=== PATIENT | female | born 1985 | race Caucasian/White ===

== ENCOUNTER 2018-07-21 19:30 | Emergency (ER) | payer BC, OTHER ==
[2018-07-21] MEDS ORDERED: methylPREDNISolone Sod Succ/PF 125 MG/2 ML VIAL ONE (20:06)
[2018-07-21] MEDS ORDERED: diphenhydrAMINE 50 MG/ML VIAL ONE (20:06)
[2018-07-21] MEDS ORDERED: Metoclopramide HCl 10 MG/2 ML VIAL ONE (20:06)
[2018-07-21 20:10] LABS: #Basophils 0.1 thou/uL (0.0-0.2); #Eosinphils 0.3 thou/uL (0.0-0.7); #Monocytes 0.9 thou/uL (0.11-0.59); #Neutrophils 10.6 thou/uL (1.40-6.50); %Basophils 0.6 % (0.0-1.0); %Eosinophils 2.2 % (0.0-10.0); %Lymphocytes 20.2 % (21.0-51.0); %Monocytes 6.1 % (0.0-10.0); %Neutrophils 70.8 % (42.0-75.0); Hemoglobin 13.9 g/dL (12.0-16.0); Mean Corpuscular HGB CONC 33.4 g/dL (32.0-36.0); Mean Corpuscular Hemoglobin 27.6 pg (27.0-31.0); Mean Corpuscular Volume 82.7 fL (78.0-98.0); Mean Platelet Volume 8.2 fL (7.4-10.4); Platelet Count 287 thou/uL (130-400); Red Blood Cell (RBC) Count 5.04 mill/uL (4.20-5.40)
[2018-07-21 20:27] LABS: ALT (SGPT) 23 U/L (8-55); AST (SGOT) 16 U/L (5-34); Albumin 3.9 g/dL (3.5-5.0); Alkaline Phosphatase 135 U/L (40-150); Anion Gap 13 mmol/L (10-20); BUN (Urea Nitrogen) 20 mg/dL (7.0-18.7); Bilirubin, Total 0.3 mg/dL (0.2-1.2); CK (CPK) 52 U/L (29-168); Calc. Creatinine Clearance 0 mL/min (70-130); Calcium 9.5 mg/dL (7.8-10.44); Carbon Dioxide 28 mmol/L (22-29); Chloride 102 mmol/L (98-107); Estimated GFR-MDRD 57; Globulin 3.5 g/dL (2.4-3.5); Glucose 128 mg/dL (70-105); Potassium 4.3 mmol/L (3.5-5.1); Protein, Total 7.4 g/dL (6.0-8.3); Sodium 139 mmol/L (136-145)
[2018-07-21 20:28] LABS: CKMB 0.6 ng/mL (0-6.6); Troponin I Less than 0.010 ng/mL (< 0.028)
--- NOTE | 2018-07-21 22:18 | CT ---
CT BRAIN NONCONTRAST: 07/21/18 HISTORY: 33-year-old female with acute onset of left headache, left sided blurred vision, dysarthria, and left sided paresthesia. FINDINGS: There is no midline shift or any other mass effect. There is no evidence of acute intracranial hemor rhage, large cortical infarct, obstructive hydrocephalus, or extraaxial fluid collection. The calvar ium is intact. There is moderate to severe polypoid mucosal thickening throughout the bilateral maxil hakeem sinuses. There is severe partial opacification of bilateral anterior ethmoid air cells encroachi ng upon the bilateral frontal recesses. The bilateral tympanomastoid cavities and the right sphenoid air cell, are clear. There is polypoid mucosal thickening at the inferior aspect of the left sphenoid air cell. IMPRESSION: 1. No acute intracranial findings. 2. Mucosal disease of paranasal sinuses. amairani jha POS: NONI
--- NOTE | 2018-07-21 22:31 | CT ---
CT CERVICAL SPINE NONCONTRAST: 07/21/18 at 10:11 p.m. HISTORY: 33-year-old female with left upper extremity paresthesia and cervicalgia. FINDINGS: Alignment is normal. The vertebral body heights are maintained. Disc spaces are maintained. There is no evidence of acute fracture. There is no evidence of high grade central spinal canal stenosis or hi gh grade neuroforaminal stenosis. There are no high grade degenerative facet changes. There is no p revertebral soft tissue swelling. There is reversal of curvature of the cervical spine. The left and right lobes of the thyroid gland are enlarged, with heterogeneous attenuation. There may be bilateral thyroid nodules. There are minimal interstitial densities partially visualized at the apex of the left lung, incompletely imaged. IMPRESSION: 1. Reversal of cervical curvature. 2. No other abnormality of the cervical spine identified. 3. Thyromegaly. amairani[] POS: NONI
== END 2018-07-22 00:11 | disposition home or self-care (01) ==
LOC: SCSER 19:30 → ERS 21:09
DX: S09.90XA Unspecified injury of head, initial encounter (principal); R20.2 Paresthesia of skin; K21.9 Gastro-esophageal reflux disease without esophagitis; I10 Essential (primary) hypertension; F17.210 Nicotine dependence, cigarettes, uncomplicated; F41.9 Anxiety disorder, unspecified; X58.XXXA Exposure to other specified factors, initial encounter
CPT/HCPCS: 70450; 72125; 80053; 82550; 82553; 83605; 84484; 85025; 93005; J1200; J2765; J2930

== ENCOUNTER 2018-08-14 21:34 | Observation (INO) | payer BC ==
[2018-08-14] MEDS ORDERED: Ondansetron PF 4 MG/2 ML Vial ONE (21:50)
--- NOTE | 2018-08-14 22:23 | CT ---
CT OF THE BRAIN WITHOUT CONTRAST: 08/14/18 INDICATION: History of dizziness and syncope. COMPARISON: Prior exam dated 07/21/18. FINDINGS: No definite acute infarct, hemorrhage or hydrocephalus is present. The septum pellucidum and third ve ntricle are midline. The skull and extracranial soft tissues are unremarkable. IMPRESSION: No acute intracranial abnormality. POS: TISHA
--- NOTE | 2018-08-14 22:31 | RAD ---
CHEST ONE VIEW: 08/14/18 INDICATION: Dizziness. COMPARISON: Prior chest radiograph dated 06/04/17. FINDINGS: Lungs are clear. Cardiomediastinal silhouette is within normal limits. No acute osseous abnormalities evident. IMPRESSION: No acute cardiopulmonary abnormality. POS: H
--- NOTE | 2018-08-14 22:33 | RAD ---
THREE VIEWS RIGHT SHOULDER: 08/14/18 INDICATION: Right shoulder pain. FINDINGS: No comparisons are available. No acute fracture or subluxation is evident. The visualized right lung is clear. IMPRESSION: No acute osseous abnormality. POS: TISHA
[2018-08-14 22:55] LABS: Hemoglobin 14.4 g/dL (12.0-16.0); Mean Corpuscular HGB CONC 32.3 g/dL (32.0-36.0); Mean Corpuscular Hemoglobin 26.9 pg (27.0-31.0); Mean Corpuscular Volume 83.4 fL (78.0-98.0); Mean Platelet Volume 9.4 fL (7.4-10.4); Platelet Count 294 thou/uL (130-400); RBC Distribution Width 13.3 % (11.5-14.5); Red Blood Cell (RBC) Count 5.33 mill/uL (4.20-5.40); White Blood Cell (WBC) Count 12.2 thou/uL (4.8-10.8)
[2018-08-14 23:02] LABS: ALT (SGPT) 34 U/L (8-55); AST (SGOT) 19 U/L (5-34); Albumin 4.1 g/dL (3.5-5.0); Alkaline Phosphatase 95 U/L (40-150); Anion Gap 15 mmol/L (10-20); BUN (Urea Nitrogen) 23 mg/dL (7.0-18.7); Bilirubin, Total 0.4 mg/dL (0.2-1.2); CK (CPK) 54 U/L (29-168); Calc. Creatinine Clearance 0 mL/min (70-130); Calcium 8.9 mg/dL (7.8-10.44); Carbon Dioxide 23 mmol/L (22-29); Chloride 108 mmol/L (98-107); Estimated GFR-MDRD 52; Globulin 3.1 g/dL (2.4-3.5); Glucose 102 mg/dL (70-105); Lipase 28 U/L (8-78); Potassium 3.7 mmol/L (3.5-5.1); Protein, Total 7.2 g/dL (6.0-8.3); Sodium 142 mmol/L (136-145)
[2018-08-14 23:03] LABS: Acetaminophen Less than 6.0 mcg/mL (10.0-30.0); Alcohol Less than 10 mg/dL (Less than 10); CKMB 0.7 ng/mL (0-6.6); Salicylate Less than 8.0 mg/dL (15.0-30.0); Troponin I Less than 0.010 ng/mL (< 0.028)
[2018-08-14 23:17] LABS: Band 1 % (5-11); Eosinophils 1 % (0-10); Lymphocytes 11 % (21-51); MDiff Complete? YES; Monocytes 9 % (0-10); Neutrophil 77 % (42-75)
[2018-08-14] MEDS ORDERED: HYDROcodone/Acetaminophen 5/325 mg Tablet ONE (23:24)
[2018-08-14 23:37] LABS: Bilirubin Small (Negative); Blood, Urine Trace (Negative); Clarity Clear (Clear); Glucose, Urine (Dipstick) Negative (Negative); Leukocyte Negative (Negative); Nitrite Negative (Negative); Protein, Urine (Dipstick) > or equal to 300 mg/dL (Neg-Trace); Urobilinogen 0.2 mg/dL (0.2-1.0); pH, Urine 5.5 (5.0-9.0)
[2018-08-14 23:44] LABS: Specific Gravity, Urine 1.034 (1.002-1.036)
[2018-08-14 23:45] LABS: RBC/HPF 0-3 HPF (0-3); Squamous Epithelial 0-3 HPF (0-3); WBC/HPF 0-3 HPF (0-3)
[2018-08-14 23:46] LABS: Bacteria/HPF 1+ HPF (None Seen); Hyaline Casts/LPF 0-3 HYALINE CAST LPF (0-3 Hyaline)
[2018-08-14 23:48] LABS: Cocaine Metabolite Screen Not Detected (NotDetected); Phencyclidine (PCP) Not Detected (NotDetected); THC/Cannabinoid Screen Not Detected (NotDetected)
[2018-08-14 23:49] LABS: Amphetamine Not Detected (NotDetected); Barbiturates Screen Not Detected (NotDetected); Benzodiazepine Screen Not Detected (NotDetected); Medtox Control Line Valid? VALID (VALID); Methadone Not Detected (NotDetected); Methamphetamine Detected (NotDetected); Opiate Screen Not Detected (NotDetected); Oxycodone Screen Not Detected (NotDetected); Tricyclic Screen Detected (NotDetected)
[2018-08-15] MEDS ORDERED: Ondansetron PF 4 MG/2 ML Vial IVP PRN (01:11)
[2018-08-15] MEDS ORDERED: Ondansetron ODT 4 MG TAB SL PRN (01:11)
[2018-08-15 01:25] VITALS: BMI 35.6
[2018-08-15] MEDS: Sodium Chloride 0.9% 1,000 ML IV SCH ×2 (02:35→09:48)
[2018-08-15 02:43] LABS: Troponin I Less than 0.010 ng/mL (< 0.028)
[2018-08-15 05:13] LABS: Troponin I Less than 0.010 ng/mL (< 0.028)
[2018-08-15] MEDS: Acetaminophen 325 MG TAB PO PRN ×3 (05:32→20:52)
[2018-08-15] MEDS ORDERED: Lisinopril 10 MG TAB PO SCH (09:00)
--- NOTE | 2018-08-15 09:23 | HP ---
CHIEF COMPLAINT: "I think I syncopized." HISTORY OF PRESENT ILLNESS: This is a 33-year-old female with past medical history of chronic back pain, osteoarthritis, kidney stones, hypertension, GERD , and asthma presenting with syncope. Per patient, she has been vomiting, having nausea and diarrhea for 3-4 days and on the day of admission when the patient got out of the bathtub, patient states that she experienced syncope. Other than that, patient states that she does not have any fever, chills, chest pain, palpitations, abdominal pain, dysuria, but admits to diarrhea, right shoulder pain after the fall. REVIEW OF SYSTEMS: Positive for syncope, diarrhea, nausea, vomiting, right shoulder pain, otherwise as documented in the HPI. All other systems were reviewed and are negative. PAST MEDICAL HISTORY: Reactive airway disease, GERD, osteoarthritis, hypertension, chronic back pain, history of kidney stones. FAMILY HISTORY: Reviewed and noncontributory to this visit. PAST SURGICAL HISTORY: Hysterectomy, lithotripsy in the past, appendectomy, cholecystectomy and . PSYCHIATRIC HISTORY: Patient has a history of anxiety. SOCIAL HISTORY: Patient drinks socially. Patient denies any drug use, even though patient has positive meth in her blood. The patient states that in the past, there was a positive methamphetamine in her urine, but she has never done drugs. She does not do drugs and she swears by. Smoking history, patient uses tobacco, smokes half a pack per day. ALLERGIES: ASPIRIN, IODINE, MORPHINE and TORADOL. CURRENT MEDICATIONS: Patient is on gabapentin 800, trazodone 300 mg, furosemide 20 mg, cyclobenzaprine 10 mg, Benadryl 25 mg, lisinopril 10 mg, Prozac 40 mg, Prilosec 10 mg, simvastatin 20 mg and Benadryl 50 mg. PHYSICAL EXAMINATION: VITAL SIGNS: Blood pressure 125/94, pulse of 150, respiratory rate of 16, temperature of 97.6, O2 saturation of 97%. GENERAL: The patient is lying in bed, does not appear to be in any acute distress. The patient is speaking in full sentences. HEENT: Normocephalic, atraumatic. Pupils are equally round and reactive light. Extraocular movements are intact. No scleral icterus. Mucous membranes are moist. NECK: Supple. Trachea is midline. No JVD. Full range of motion. LUNGS: Clear to auscultation bilaterally. No wheezing, no rales, no rhonchi is appreciated. CARDIAC: Positive S1, S2, regular rate and rhythm. ABDOMEN: Soft, nontender, nondistended, positive bowel sounds in all quadrants. EXTREMITIES: Upper extremity, patient has good range of motion. The patient is having some tenderness at the right shoulder with range of motion. No deformities, no defects noted. Good pulses bilaterally at the radial pulses. Lower extremity, 5/5 lower extremity strength. Good pulses at dorsalis pedis. NEUROLOGIC: Cranial nerves II-XII grossly intact. Neurologic deficit noted. SKIN: Warm, dry, and intact. IMAGING DATA: 1. EKG shows normal sinus rhythm. 2. CT of the head is negative. 3. CT of the chest is also negative. In the ED, patient was given [place], normal saline and Zofran. LABORATORY DATA: WBC is 12.2, hemoglobin 14.4, hematocrit 24.5, RDW 13.3, platelet count is 294. Sodium is 142, potassium 3.7, chloride 108, carbon dioxide 23, BUN is 23, creatinine is 1.19. Urinalysis negative for nitrate, negative for leukoesterase. Urine toxicity, patient has positive methamphetamine and tricyclics. ASSESSMENT AND PLAN: 1. This is a 33-year-old female being admitted for nausea, vomiting, and diarrhea, likely due to drug withdrawal; however, the patient can also be having some gastroenteritis. At this point, we are going to treat the patient supportively and we will monitor the patient's labs in the morning and will fluid hydrate the patient and we will follow up on a BUN and creatinine. 2. Positive urine toxicology. Patient has methamphetamines in the urine. We will treat the patient supportively. 3. History of anxiety, currently stable. We will continue to treat the patient with her current medications. 4. Chronic back pain. We will continue patient on her home medication. 5. History of gastroesophageal reflux disease. We will continue patient on her home medication. 6. History of osteoarthritis. We will continue patient on home medications. 7. History of hypertension. The patient's blood pressure is currently controlled. We will continue to monitor the patient's blood pressure closely. 8. Deep venous thrombosis and gastrointestinal prophylaxis. MTDD
[2018-08-15] MEDS: Cyclobenzaprine 10 MG TAB PO SCH ×2 (09:50→20:52)
[2018-08-15] MEDS: Furosemide 20 MG TAB PO SCH (09:50)
--- NOTE | 2018-08-15 13:35 | PDOC.PN ---
- Subjective Encounter Start Date: 08/15/18 Encounter Start Time: 09:00 Patient sitting up in bed, she is admitted under observation for nausea, vomiting, and diarrhea and syncope. Syncope likely related to dehydration due to frequent loose stools. She reports symptoms have been ongoing for 1-2 weeks. Urine drug screen positive for methamphetamines which may likely be the cause of her symptoms as she may be withdrawing. She denies chest pain or shortness of breath. She tolerated breakfast without complaints. Stool collected to rule out c diff. - Objective Resuscitation Status: Resuscitation Status FULL:Full Resuscitation MAR Reviewed: Yes Vital Signs & Weight: Vital Signs (12 hours) Temp Pulse Resp BP Pulse Ox 08/15/18 11:13 98.4 F 97 20 123/78 95 08/15/18 07:49 97.9 F 94 18 132/73 97 08/15/18 04:06 97.8 F 91 16 123/56 L 93 L Weight Weight 208 lb I&O: 08/14/18 08/15/18 08/16/18 06:59 06:59 06:59 Intake Total 1825 Balance 1825 Result Diagrams: 08/14/18 22:40 08/14/18 22:40 Radiology Reviewed by me: Yes EKG Reviewed by me: Yes Phys Exam - Physical Examination Constitutional: NAD HEENT: PERRLA, moist MMs, sclera anicteric, oral pharynx no lesions Edentulous noted Neck: no nodes, no JVD, supple Respiratory: no wheezing, no rales, no rhonchi, clear to auscultation bilateral Cardiovascular: RRR, no significant murmur, no rub Gastrointestinal: soft, non-tender, no distention, positive bowel sounds Musculoskeletal: no edema, pulses present Neurological: non-focal, normal sensation, moves all 4 limbs Lymphatic: no nodes Psychiatric: normal affect, A&O x 3 Skin: no rash, normal turgor, cap refill <2 seconds Dx/Plan (1) Diarrhea Code(s): R19.7 - DIARRHEA, UNSPECIFIED Status: Acute (2) Nausea & vomiting Code(s): R11.2 - NAUSEA WITH VOMITING, UNSPECIFIED Status: Acute (3) Syncope Code(s): R55 - SYNCOPE AND COLLAPSE Status: Acute (4) Methamphetamine use Code(s): F15.10 - OTHER STIMULANT ABUSE, UNCOMPLICATED Status: Acute - Plan cont current plan of care, DVT proph w/SCDs * Continue with intravenous normal saline for hydration * Symptomatic treatment with zofran for nausea * Await stool culture to rule out cdiff * Symptoms likely related to amphetamine use as this may be withdrawal. * Check urine culture as UA showing 1+ bacteria but may be contaminate as patient denying urinary symptoms at this time * Will likely be discharged in the next 24 hours if symptoms continue to improve
--- NOTE | 2018-08-15 14:56 | PDOC.EVN ---
Event Note - Event Note Event Note: C diff returned negative, will continue to manage patient symptoms and likely discharge in the am if stable.
[2018-08-15] MEDS ORDERED: Ondansetron ODT 8 MG TAB SL PRN (17:07)
[2018-08-15] MEDS ORDERED: Famotidine 20 MG TAB PO SCH (18:00)
[2018-08-15] MEDS ORDERED: PROVENTIL INHALER 6.7 G (200 INHALATIONS) INH PRN (20:57)
[2018-08-15] MEDS ORDERED: traZODone HCl 150 MG TAB PO SCH (21:00)
[2018-08-15] MEDS ORDERED: FLUoxetine HCl 20 MG CAP PO SCH (21:00)
[2018-08-15] MEDS: Gabapentin 400 MG CAP PO SCH (21:12)
[2018-08-16 04:55] LABS: #Basophils 0.1 thou/uL (0.0-0.2); #Eosinphils 0.3 thou/uL (0.0-0.7); #Lymphocytes 2.4 thou/uL (1.20-3.40); #Monocytes 0.9 thou/uL (0.11-0.59); #Neutrophils 5.1 thou/uL (1.40-6.50); %Basophils 0.8 % (0.0-1.0); %Eosinophils 3.3 % (0.0-10.0); %Lymphocytes 27.4 % (21.0-51.0); %Monocytes 9.9 % (0.0-10.0); %Neutrophils 58.6 % (42.0-75.0); Hemoglobin 13.3 g/dL (12.0-16.0); Mean Corpuscular HGB CONC 33.8 g/dL (32.0-36.0); Mean Corpuscular Hemoglobin 28.6 pg (27.0-31.0); Mean Corpuscular Volume 84.7 fL (78.0-98.0); Mean Platelet Volume 8.2 fL (7.4-10.4); Platelet Count 265 thou/uL (130-400); RBC Distribution Width 13.4 % (11.5-14.5); Red Blood Cell (RBC) Count 4.67 mill/uL (4.20-5.40); White Blood Cell (WBC) Count 8.8 thou/uL (4.8-10.8)
[2018-08-16 05:10] LABS: Anion Gap 11 mmol/L (10-20); BUN (Urea Nitrogen) 20 mg/dL (7.0-18.7); Calc. Creatinine Clearance 149 mL/min (70-130); Calcium 8.5 mg/dL (7.8-10.44); Carbon Dioxide 23 mmol/L (22-29); Chloride 112 mmol/L (98-107); Estimated GFR-MDRD 83; Glucose 104 mg/dL (70-105); Potassium 3.9 mmol/L (3.5-5.1); Sodium 142 mmol/L (136-145)
[2018-08-16 08:26] VITALS: BP 136/77; TEMP 98.3
[2018-08-16] MEDS ORDERED: Famotidine 20 MG TAB PO SCH (09:00)
--- NOTE | 2018-08-16 09:55 | PDOC.EVN ---
Event Note - Event Note Event Note: I have interviewed,examined, reviewed and discussed patient with Tierra KIM. All pertinent hx, labs, radiographs reviewed. Likely dehydration and use of Methamphetamines contributed to current situation. Plan for d/c home today. Pt verbalized understanding and agreement. Please see dictated d/c summary for full details.
[2018-08-16] MEDS: Gabapentin 400 MG CAP PO SCH (10:00)
[2018-08-16] MEDS: Cyclobenzaprine 10 MG TAB PO SCH (10:00)
[2018-08-16] MEDS: Furosemide 20 MG TAB PO SCH (10:01)
--- NOTE | 2018-08-16 13:49 | DIS ---
DATE OF ADMISSION: 08/15/2018 DATE OF DISCHARGE: 08/16/2018 PRIMARY CARE PHYSICIAN: Dr. Malone DISCHARGE DIAGNOSES: 1. Nausea, vomiting, which is resolved. 2. Diarrhea, which has improved. 3. Dehydration, which has improved. 4. Methamphetamine abuse. CONSULTATIONS: None. PROCEDURES: The patient had a brain CT, which was negative for acute findings. Right shoulder x-ray which is also negative for acute findings. Chest x-ray, which is negative for acute findings and an EKG which showed a normal sinus rhythm with no ST elevations. VITAL SIGNS ON DISCHARGE: Temperature 98.3, pulse 95, respirations 18, pulse ox 94% on room air, blood pressure 136/77. REVIEW OF SYSTEMS: She denies any syncope, diarrhea, nausea, vomiting. Reports mild shoulder pain after the syncopal episode which brought her into the hospital. PAST MEDICAL HISTORY: Reactive airway disease, GERD, osteoarthritis, hypertension, chronic back pain and history of kidney stones. PHYSICAL EXAMINATION: GENERAL: She was lying in bed in no acute distress. The patient is speaking in full sentences. HEENT: Normocephalic, atraumatic. Pupils are equally round and reactive to light. Extraocular movements are intact. Mucous membranes are moist. NECK: Neck supple. Trachea is midline. No JVD. Full range of motion. LUNGS: Clear to auscultation bilaterally. No wheezes, no rales, no rhonchi. CARDIAC: Positive S1, S2 regular rhythm and rate. ABDOMEN: Soft, nontender, nondistended, positive bowel sounds in all quadrants. EXTREMITIES: Strength, sensation; pulses are equal in upper and lower extremities. Patient has some tenderness to the right shoulder with range of motion. NEUROLOGIC: Cranial nerves II-XII are grossly intact. No neurological deficit is noted. SKIN: Warm, dry and intact. HISTORY OF PRESENT ILLNESS AND HOSPITAL COURSE: A 33-year-old female who reports having some nausea, vomiting, diarrhea for 3-4 days prior to admission. She reports she had a syncopal episode when she got out of the tub on the day of admission, reports her family found her slumped against the wall. Reports she injured her right shoulder at that time. X-ray in the ED was negative for acute findings. UA was positive for methamphetamines and TCAs. While she has been here, she has been ambulating without assistance. Denies any current dizziness. Denies any recurrent syncopal episodes. Reports generally she feels better. No nausea, vomiting, one episode of diarrhea yesterday. She was feeling better today and is requesting to go home. ALLERGIES: Include ASPIRIN, IODINE, MORPHINE and TORADOL. CURRENT MEDICATIONS: Albuterol inhaler 2 puffs as needed q.4 hours, Flexeril 5 mg tablet 10 mg p.o. b.i.d., Benadryl 25 mg as needed, fluoxetine 40 mg p.o. at bedtime, furosemide 20 mg p.o. daily, gabapentin 800 mg p.o. t.i.d., lisinopril 10 mg p.o. daily, metformin 500 mg p.o. b.i.d., Nexium 40 mg p.o. daily, simvastatin 20 mg p.o. at bedtime, trazodone 300 mg p.o. at bedtime, Pepcid 20 mg p.o. b.i.d., hydrocodone 5/325 two tablets q.4. p.r.n., albuterol with ipratropium 120 1 puff q.6 hours as needed. DISCHARGE CONDITION: Stable. DISPOSITION: To home. FOLLOWUP: She is to follow up with Dr. Malone in 1 week. [facility]ITAL[facility]
== END 2018-08-16 11:05 | disposition home or self-care (01) ==
LOC: SCSER 21:34 → 2SW 08-15 00:07
PROVIDERS: ADMIT Internal Medicine; ATTEND Internal Medicine
DX: R55 Syncope and collapse (principal); M25.511 Pain in right shoulder; K21.9 Gastro-esophageal reflux disease without esophagitis; I10 Essential (primary) hypertension; F41.9 Anxiety disorder, unspecified; F17.210 Nicotine dependence, cigarettes, uncomplicated; Z79.899 Other long term (current) drug therapy; W19.XXXA Unspecified fall, initial encounter
CPT/HCPCS: 36415; 70450; 71045; 80048; 80053; 80306; 80307; 81003; 81015; 82553; 83690; 84484; 85025; 87086; 87324; 87449; 90471; 90686; 90732; 93005; 96361; 96374; G0008; G0009; G0378; J2405; Q0162

== ENCOUNTER 2019-01-14 11:03 | Emergency (ER) | payer BC, SELFPAY ==
[2019-01-14 13:15] LABS: Bilirubin Negative (Negative); Blood, Urine Negative (Negative); Clarity CLEAR (Clear); Glucose, Urine (Dipstick) Negative (Negative); Leukocyte Negative (Negative); Nitrite Negative (Negative); Protein, Urine (Dipstick) 100 mg/dL (Neg-Trace); Specific Gravity, Urine 1.016 (1.002-1.036); Urobilinogen 0.2 mg/dL (0.2-1.0); pH, Urine 5.5 (5.0-9.0)
[2019-01-14] MEDS ORDERED: Fentanyl 100 MCG/2 ML VIAL ONE (13:18)
[2019-01-14 13:19] LABS: Bacteria/HPF Rare-Few HPF (None Seen); Pathc Cast-AUWi Flag 2.17 (0-2.49)
[2019-01-14 13:30] LABS: RBC/HPF 0-3 HPF (0-3)
[2019-01-14 13:31] LABS: Hyaline Casts/LPF 0-3 HYALINE CAST LPF (0-3 Hyaline)
--- NOTE | 2019-01-14 14:54 | HP ---
The patient is seen in the ER on 01/14/2019 at [facility]. CHIEF COMPLAINT: Abdominal pain. HISTORY OF PRESENT ILLNESS: This is a 33-year-old female with a known incisional hernia, presented to [facility] a few days ago with pain above her umbilicus associated with a mass. The hernia was able to be reduced. She had a CT scan showing no evidence of strangulation. She now presents to [facility] with recurrent pain. She has required quite a lot of narcotic in the emergency room because she is complaining of pain nonstop. I was able to reduce the hernia again at the bedside without difficulty. PAST MEDICAL HISTORY: GERD, osteoarthritis, hypertension, chronic back pain, and kidney stones. PAST SURGICAL HISTORY: Hysterectomy, lithotripsy, appendectomy, cholecystectomy, and . MEDICATIONS: Taking daily. SOCIAL HISTORY: No smoking, alcohol, or other drugs currently. REVIEW OF SYSTEMS: Ten-system review of systems is otherwise negative, unless described above. PHYSICAL EXAMINATION: HEENT: Sclerae anicteric. Oropharynx clear. NECK: No lymphadenopathy. CHEST: Clear. HEART: Regular rate and rhythm. ABDOMEN: Soft, nontender. Now that her hernia is reduced. She has a 3-cm defect just above her umbilicus. Well-healed incisions. EXTREMITIES: No ischemia or edema to extremities. LABORATORY DATA: Urine is clear today. No other labs. ASSESSMENT: Intermittently incarcerated omental fat and an incisional hernia. PLAN: Elective repair next week. I will arrange for that. Risks, benefits, and alternatives were discussed and she gives consent. Job ID: [id number]
== END 2019-01-14 14:52 | disposition home or self-care (01) ==
LOC: ERS 11:03
DX: K42.9 Umbilical hernia without obstruction or gangrene (principal); K21.9 Gastro-esophageal reflux disease without esophagitis; I10 Essential (primary) hypertension; F41.9 Anxiety disorder, unspecified; F17.210 Nicotine dependence, cigarettes, uncomplicated
CPT/HCPCS: 81003; 81015; 96374; J3010

== ENCOUNTER 2019-01-20 06:36 | Day surgery (SDC) | payer OTHER ==
[2019-01-19 12:41] VITALS: BMI 29.2
[2019-01-20 08:24] LABS: Anion Gap 13 mmol/L (10-20); BUN (Urea Nitrogen) 13 mg/dL (7.0-18.7); Calc. Creatinine Clearance 121 mL/min (70-130); Calcium 8.9 mg/dL (7.8-10.44); Carbon Dioxide 24 mmol/L (22-29); Chloride 108 mmol/L (98-107); Estimated GFR-MDRD 81; Glucose 105 mg/dL (70-105); Potassium 3.8 mmol/L (3.5-5.1); Sodium 141 mmol/L (136-145)
[2019-01-20] MEDS ORDERED: Midazolam HCl 2 mg/2 ml Vial ONE (08:39)
[2019-01-20] MEDS ORDERED: Bupivacaine/Epinephrine 0.25% 30 ML VIAL ONE (08:47)
[2019-01-20] MEDS ORDERED: Fentanyl 250 MCG/5 ML VIAL ONE (08:51)
--- NOTE | 2019-01-20 10:30 | OP ---
DATE OF PROCEDURE: 01/20/2019 PREOPERATIVE DIAGNOSIS: Incisional hernia. POSTOPERATIVE DIAGNOSIS: Incisional hernia. PROCEDURE PERFORMED: Laparoscopic robotic incisional hernia repair with mesh, [address] ANESTHESIA: General. ESTIMATED BLOOD LOSS: Minimal. COMPLICATIONS: None. SPECIMEN: None. FINDINGS: Incisional hernia. DESCRIPTION OF PROCEDURE: The patient was taken to the operating room and laid supine on the operating room table after general anesthetic was obtained. Morales catheter was placed. The abdomen was prepped and draped in a sterile fashion. Left subcostal 5 mm Optiview trocar was placed in the usual fashion and high-flow pneumoperitoneum was obtained. Left and right subcostal 8 mm robot trocars were placed under direct visualization without injury. The 5 mm subcostal port switched out to 11 mm port. All ports were docked to the robot. Surgeon goes to the console. The large amount of omentum in the incisional hernia was reduced back down into the abdominal cavity. There was no intestine. No injury to any intraabdominal structures. The defect was closed using running 0 V-Loc suture. An 8 cm [place] Ventralex ST mesh was brought into the sterile field. The exposed mesh was placed up against the posterior fascia. It was held in place using the 0 V-Loc needle. 2-0 V-Loc was used to suture the mesh to the posterior fascia circumferentially along the edge. All needles were removed from the abdomen and accounted for. No injury to any intraabdominal structures. No bleeding. All port sites were infiltrated using local anesthetic. All ports were removed under camera visualization and pneumoperitoneum was let down. 4-0 Monocryl and Dermabond used to close all skin incisions. The patient was sent to Recovery in stable condition. All sponge counts, needle counts, and lap counts were correct. Job ID: [id number]
[2019-01-20] MEDS ORDERED: Fentanyl 100 MCG/2 ML VIAL ONE ×3 (10:36→11:59)
[2019-01-20] MEDS ORDERED: HYDROcodone/Acetaminophen 5/325 mg Tablet ONE (12:36)
== END 2019-01-20 13:55 | disposition home or self-care (01) ==
LOC: SDC 06:36
PROVIDERS: ATTEND Surgery
PROC: 0WUF4JZ Supplement Abdominal Wall with Synthetic Substitute, Percutaneous Endoscopic Approach (ICD-10-PCS; principal; 2019-01-20)
DX: K43.2 Incisional hernia without obstruction or gangrene (principal); K21.9 Gastro-esophageal reflux disease without esophagitis; G47.00 Insomnia, unspecified; M79.7 Fibromyalgia; G43.909 Migraine, unspecified, not intractable, without status migrainosus; F17.210 Nicotine dependence, cigarettes, uncomplicated; F31.9 Bipolar disorder, unspecified; F41.9 Anxiety disorder, unspecified; Z79.84 Long term (current) use of oral hypoglycemic drugs; Z79.899 Other long term (current) drug therapy; Z88.5 Allergy status to narcotic agent; Z88.8 Allergy status to other drugs, medicaments and biological substances; Z91.013 Allergy to seafood; Z91.041 Radiographic dye allergy status
CPT/HCPCS: 36415; 80048; 93005; 93010; C1781; J2250; J3010

== ENCOUNTER 2019-02-22 18:59 | Emergency (ER) | payer SELFPAY ==
[2019-02-22 20:56] LABS: #Basophils 0.1 thou/uL (0.0-0.2); #Eosinphils 0.3 thou/uL (0.0-0.7); #Neutrophils 10.2 thou/uL (1.40-6.50); %Basophils 0.6 % (0.0-1.0); %Eosinophils 2.4 % (0.0-10.0); %Lymphocytes 20.5 % (21.0-51.0); %Monocytes 7.1 % (0.0-10.0); %Neutrophils 69.5 % (42.0-75.0); Hemoglobin 14.2 g/dL (12.0-16.0); Mean Corpuscular HGB CONC 33.8 g/dL (32.0-36.0); Mean Corpuscular Hemoglobin 28.4 pg (27.0-31.0); Mean Corpuscular Volume 83.9 fL (78.0-98.0); Mean Platelet Volume 8.5 fL (7.4-10.4); Platelet Count 316 thou/uL (130-400); RBC Distribution Width 13.2 % (11.5-14.5); White Blood Cell (WBC) Count 14.7 thou/uL (4.8-10.8)
[2019-02-22 21:17] LABS: ALT (SGPT) 29 U/L (8-55); AST (SGOT) 15 U/L (5-34); Albumin 3.8 g/dL (3.5-5.0); Alkaline Phosphatase 112 U/L (40-150); Anion Gap 13 mmol/L (10-20); BUN (Urea Nitrogen) 19 mg/dL (7.0-18.7); Bilirubin, Total 0.2 mg/dL (0.2-1.2); Calc. Creatinine Clearance 0 mL/min (70-130); Calcium 8.9 mg/dL (7.8-10.44); Carbon Dioxide 23 mmol/L (22-29); Chloride 106 mmol/L (98-107); Estimated GFR-MDRD 49; Glucose 125 mg/dL (70-105); Lipase 26 U/L (8-78); Protein, Total 6.8 g/dL (6.0-8.3); Sodium 138 mmol/L (136-145)
[2019-02-22 21:27] LABS: Bilirubin Small (Negative); Blood, Urine Negative (Negative); Clarity CLEAR (Clear); Glucose, Urine (Dipstick) Negative (Negative); Leukocyte Negative (Negative); Nitrite Negative (Negative); Protein, Urine (Dipstick) > or equal to 300 mg/dL (Neg-Trace); Specific Gravity, Urine 1.026 (1.002-1.036); Urobilinogen 0.2 mg/dL (0.2-1.0); pH, Urine 5.5 (5.0-9.0)
[2019-02-22 21:29] LABS: Bacteria/HPF 1+ HPF (None Seen); Hyaline Casts/LPF 7-10 HYALINE CAST LPF (0-3 Hyaline); Pathc Cast-AUWi Flag 0.95 (0-2.49); RBC/HPF 0-3 HPF (0-3)
[2019-02-22 21:31] LABS: Pregnancy Test - Urine (BHCG) Negative (Negative); Pregu Control Background? CLEAR/WHITE (CLR/WHITE); Pregu Control Bar Appear? YES (CONTROL BAR); Specific Gravity 1.026 (1.002-1.036)
[2019-02-23] MEDS ORDERED: HYDROcodone/Acetaminophen 5/325 mg Tablet ONE (00:13)
--- NOTE | 2019-02-23 00:54 | CT ---
CT abdomen noncontrast CT pelvis noncontrast: (Urolithiasis protocol) DATE: 02/23/2019 at 11:58 pm HISTORY: 33-year-old female with nausea, vomiting, fever, and generalized abdominal pain. COMPARISON: None available TECHNIQUE: IV injection of iodinated contrast media: None Oral contrast media: None FINDINGS: Other than for urolithiasis, the lack of IV and oral contrast limits the evaluation. There are 2 tiny calculi adjacent to each other, approximately 2 mm in size each, at a right renal lo wer pole calyx. No hydronephrosis. No calculus in the ureters or urinary bladder. No colonic diverticulitis. No small bowel dilation. No pneumoperitoneum or ascites. Several scattered surgical c lips, including adjacent to tip of cecum, and a couple in the ventral aspect of the peritoneal cavity to the right of midline at mid abdomen. Within the limitations of a noncontrast scan, no gross abnormality identified involving the liver, abdominal aorta, adrenals, pancreas, or spleen. Appendix not visualized. Cholecystectomy clips in gallbladder fossa. Tiny subcentimeter focal hypoden sity in right lobe of liver, too small to characterize. 1.5 cm low-density lesion in the left lobe of liver, too small to characterize. No ventral or inguinal hernia. No bladder wall thickening. Lung bases are clear. IMPRESSION: 1. No acute findings. 2. Minimal right nephrolithiasis without obstructive uropathy. 3. Status post appendectomy and cholecystectomy.
== END 2019-02-23 01:05 | disposition home or self-care (01) ==
LOC: ERS 18:59
DX: G89.18 Other acute postprocedural pain (principal); R10.9 Unspecified abdominal pain; I10 Essential (primary) hypertension; M19.90 Unspecified osteoarthritis, unspecified site; J45.909 Unspecified asthma, uncomplicated; F41.9 Anxiety disorder, unspecified; F17.210 Nicotine dependence, cigarettes, uncomplicated; Z87.442 Personal history of urinary calculi
CPT/HCPCS: 36415; 74176; 80053; 81003; 81015; 81025; 83690; 85025

== ENCOUNTER 2019-06-13 17:22 | Emergency (ER) | payer SELFPAY ==
[2019-06-13] MEDS ORDERED: Lidocaine 1% w/Epinephrine 1:100K 20 ML VIAL ONE (17:39)
[2019-06-13] MEDS ORDERED: HYDROcodone/Acetaminophen 10/325 mg Tablet ONE (18:12)
== END 2019-06-13 18:15 | disposition home or self-care (01) ==
LOC: SCSER 17:22
DX: L02.31 Cutaneous abscess of buttock (principal); F41.9 Anxiety disorder, unspecified; J45.909 Unspecified asthma, uncomplicated; M19.90 Unspecified osteoarthritis, unspecified site
CPT/HCPCS: 10060; J2001